=== PATIENT | male | born 1945 | race Caucasian/White ===

== ENCOUNTER 2019-05-28 12:00 | Observation (INO) ==
--- NOTE | 2019-05-28 12:16 | Emergency Department Note ---
Disposition Clinical Impression: Ureterolithiasis, Acute kidney injury Disposition: Admitted As Inpatient Condition: Good Forms: Work/School Release, ED Satisfaction Letter Time of Disposition: 13:27 Abdominal Pain HPI - General Chief Complaint: ED Abdominal Pain Stated Complaint: kidney stones Time Seen by Provider: 05/28/19 12:07 Source: patient Mode of arrival: EMS Limitations: no limitations Nursing Notes Reviewed: Yes Vital Signs Reviewed: Yes - History of Present Illness HPI Narrative: This is a 73-year-old male with a history of hypertension, prior TIA, prior renal stones requiring surgical removal who presents to the ER via EMS from the [facility] due to kidney stone. Patient reports he developed flank pain on Monday. [place] similar to his prior kidney stones. He was vomiting throughout the day unable to keep down his blood pressure medications. He had a CT scan showing a right proximal ureteral stone. Patient was given some pain meds reports resolution of his pain. No recent illnesses. No fevers. No dysuria or hematuria. No other complaints. Pt Subjective Complaint: flank pain Onset (ago): day(s) Consistency: now resolved Location: R flank Improves with: nothing Worsens with: nothing Associated symptoms: Reports: nausea, vomiting. Denies: diarrhea, fever, dysuria, hematuria Treatments prior to arrival: none - Related Data Home Medications Medication Instructions Recorded Confirmed Lisinopril 1 tab PO DAILY 08/12/16 11/29/18 Aspirin [Lo-Dose Aspirin EC] 81 mg PO DAILY 07/12/18 11/29/18 Previous Rx's Medication Instructions Recorded Sildenafil Citrate [Viagra] 100 mg PO PRN PRN #2 tablet 11/29/18 Allergies Allergy/AdvReac Type Severity Reaction Status Date / Time codeine Allergy Gastrointestinal Verified 11/29/18 13:57 Upset All systems ED: reviewed and negative except as stated. Constitutional: Denies: fever, chills Gastrointestinal: Reports: abdominal pain, nausea, vomiting. Denies: diarrhea Genitourinary: Denies: dysuria, hematuria Abdominal Pain PMH - Past Medical History Male Surgical History: Reports: cancer surgery, Tonsillectomy, ureteral stent - Social History Smoking status: Never smoker Alcohol use: Reports: none Drug use: Reports: none Physical Exam - General Limitations: no limitations General appearance: alert, in no apparent distress - Head Head exam: atraumatic, normocephalic, normal inspection - Eye Eye exam: Present: normal appearance - ENT ENT exam: normal exam - Neck Neck exam: Present: normal inspection - Chest Chest inspection: Present: normal inspection, symmetric chest wall rise - Respiratory Respiratory exam: Present: normal lung sounds bilaterally - Cardiovascular Cardiovascular exam: Present: regular rate, normal rhythm, irregular rhythm - Abdominal Exam Abdominal exam: Present: soft, Non-Tender. Absent: tenderness, distention, guarding, rigidity - Extremities Exam Extremities exam: Present: normal inspection, full ROM - Expanded Upper Extremity Exam Shoulder exam: Present: normal inspection, full ROM Arm exam: Present: normal inspection, full ROM Elbow exam: Present: normal inspection, full ROM Forearm/Wrist exam: Present: normal inspection, full ROM Hand exam: Present: normal inspection, full ROM - Expanded Lower Extremity Exam Hip/Pelvis exam: Present: normal inspection, full ROM Upper leg exam: Present: normal inspection, full ROM Knee exam: Present: normal inspection, full ROM Lower leg exam: Present: normal inspection, full ROM Ankle exam: Present: normal inspection, full ROM Foot/toe exam: Present: normal inspection, full ROM - Skin Skin exam: Present: warm, dry Course Course Narrative: Seen and examined. I reviewed the patient's CT read from the [facility] today with the impression: There is a large calculus in the proximal right ureter at the right ureteropelvic junction resulting in moderate hydronephrosis. 2. Bilateral nonobstructing renal calculi. 3. Bilateral inguinal hernias. The right inguinal hernia contains bladder. This is unchanged compared to 2012. In review of the CT scan the patient has an 11 mm x 10 mm x 11 mm calculus in the right proximal right ureter at the UPJ. Labs reviewed from the [facility]. WBC 12.8. Creatinine 1.6, normal potassium, urinalysis without infection. Patient is currently asymptomatic. Plan did discuss with urology for anticipated admission. - Reevaluation(s) Reevaluation #1: Discussed recommendations from urology with the patient, agreeable with admission. - Consultations Consultation #1: I spoke with the OR nurse as Dr. Pitts was scrubbed in. Discussed the patient's history, imaging at the [facility], labs. He recommends admission to the hospital service, keep the patient nothing by mouth and they will see in consultation. Vital Signs Temperature 98.6 F 05/28/19 12:22 Pulse Rate 65 05/28/19 12:22 Respiratory Rate 18 05/28/19 12:22 Blood Pressure 154/88 05/28/19 12:22 O2 Sat by Pulse Oximetry 97 05/28/19 12:22 Temperature 98.6 F 05/28/19 12:22 Pulse Rate 65 05/28/19 12:22 Respiratory Rate 18 05/28/19 12:22 Blood Pressure 154/88 05/28/19 12:22 O2 Sat by Pulse Oximetry 97 05/28/19 12:22 Oxygen Delivery Oxygen Delivery Room Air Abdominal Pain - MDM Narrative Medical decision making narrative: 73-year-old male presenting with right flank pain found to have a right proximal ureteral stone. His pain is well controlled here. He does have a creatinine of 1.6 which is up from his baseline. His urinalysis at the [facility] showed no signs of infection. Urology was consulted. The patient is admitted to the hospitalist service. - Lab Data Lab results reviewed: Yes I reviewed the patient's lab results. Result diagrams: 05/28/19 12:20 05/28/19 12:20 Lab Results 05/28/19 05/28/19 05/28/19 Range/Units 12:06 12:20 12:20 WBC 14.0 H (4.3-11.1) K/mcL RBC 5.42 (4.19-5.50) M/mcL Hgb 17.3 H (12.9-16.9) g/dL Hct 50.7 H (37.5-50.1) % MCV 93.5 (83.0-100.0) fL MCH 31.9 (28.0-33.3) pg MCHC 34.1 (31.6-35.5) g/dL RDW 13.6 (11.5-14.5) % Plt Count 186 (140-400) K/mcL MPV 9.5 (9.4-12.4) fL Immature Gran % 0.6 (0-4) % Seg Neutrophils % 82.9 % Lymphocytes % 7.4 % Monocytes % 8.4 % Eosinophils % 0.1 % Basophils % 0.6 % Neutrophils # 11.6 H (1.6-8.9) K/mcL Lymphocytes # 1.0 (0.6-4.6) K/mcL Monocytes # 1.2 (0.0-1.3) K/mcL Eosinophils # 0.0 (0.0-0.6) K/mcL Basophils # 0.1 (0.0-0.2) K/mcL PT 11.7 (9.4-12.1) Seconds INR 1.0 Sodium (136-145) mEq/L Potassium (3.5-5.1) mEq/L Chloride (98-107) mEq/L Carbon Dioxide (23-29) mEq/L BUN (8-23) mg/dL Creatinine (0.70-1.30) mg/dL Est GFR ( Amer) (> 60) Est GFR (Non-Af Amer) (> 60) BUN/Creatinine Ratio (6-26) Glucose (70-105) mg/dL Calculated Osmolality (280-300) Calcium (8.6-10.3) mg/dL Total Bilirubin (0.3-1.0) mg/dL Direct Bilirubin (0.0-0.2) mg/dL Indirect Bilirubin (0.0-1.2) mg/dL AST (13-39) Units/L ALT (7-52) Units/L Alkaline Phosphatase (34-104) Units/L Serum Total Protein (6.4-8.9) g/dL Albumin (3.5-5.7) g/dL Globulin (2.4-3.5) g/dL Albumin/Globulin Ratio (1.1-2.2) Lipase (11-82) Units/L Urine Color Yellow (Yellow) Urine Clarity Clear (Clear) Urine pH 6.0 (5.0-8.0) pH Units Ur Specific [place] 1.014 (1.010-1.025) Urine Protein Negative (Neg-Trace) mg/dL Urine Glucose (UA) Normal (Normal) mg/dL Urine Ketones Negative (Negative) mg/dL Urine Blood Negative (Negative) Urine Nitrite Negative (Negative) Urine Bilirubin Negative (Negative) Urine Urobilinogen Normal (Normal) mg/dL Ur Leukocyte Esterase Negative (Negative) Ur Culture Indicated? NO (NO) 05/28/19 Range/Units 12:20 WBC (4.3-11.1) K/mcL RBC (4.19-5.50) M/mcL Hgb (12.9-16.9) g/dL Hct (37.5-50.1) % MCV (83.0-100.0) fL MCH (28.0-33.3) pg MCHC (31.6-35.5) g/dL RDW (11.5-14.5) % Plt Count (140-400) K/mcL MPV (9.4-12.4) fL Immature Gran % (0-4) % Seg Neutrophils % % Lymphocytes % % Monocytes % % Eosinophils % % Basophils % % Neutrophils # (1.6-8.9) K/mcL Lymphocytes # (0.6-4.6) K/mcL Monocytes # (0.0-1.3) K/mcL Eosinophils # (0.0-0.6) K/mcL Basophils # (0.0-0.2) K/mcL PT (9.4-12.1) Seconds INR Sodium 133 L (136-145) mEq/L Potassium 4.1 (3.5-5.1) mEq/L Chloride 99 (98-107) mEq/L Carbon Dioxide 25 (23-29) mEq/L BUN 24 H (8-23) mg/dL Creatinine 1.60 H (0.70-1.30) mg/dL Est GFR ( Amer) 51 L (> 60) Est GFR (Non-Af Amer) 42 L (> 60) BUN/Creatinine Ratio 15 (6-26) Glucose 112 H (70-105) mg/dL Calculated Osmolality 281 (280-300) Calcium 9.8 (8.6-10.3) mg/dL Total Bilirubin 1.0 (0.3-1.0) mg/dL Direct Bilirubin 0.3 H (0.0-0.2) mg/dL Indirect Bilirubin 0.7 (0.0-1.2) mg/dL AST 23 (13-39) Units/L ALT 20 (7-52) Units/L Alkaline Phosphatase 48 (34-104) Units/L Serum Total Protein 8.2 (6.4-8.9) g/dL Albumin 4.6 (3.5-5.7) g/dL Globulin 3.6 H (2.4-3.5) g/dL Albumin/Globulin Ratio 1.3 (1.1-2.2) Lipase 7 L (11-82) Units/L Urine Color (Yellow) Urine Clarity (Clear) Urine pH (5.0-8.0) pH Units Ur Specific [place] (1.010-1.025) Urine Protein (Neg-Trace) mg/dL Urine Glucose (UA) (Normal) mg/dL Urine Ketones (Negative) mg/dL Urine Blood (Negative) Urine Nitrite (Negative) Urine Bilirubin (Negative) Urine Urobilinogen (Normal) mg/dL Ur Leukocyte Esterase (Negative) Ur Culture Indicated? (NO) - Radiology Data Radiology results reviewed: Yes I reviewed the patient's radiology results. S.[email or web address].[email or web address] - Fernando Situation: Demographics, MOA Background: Presenting Complaint, Relevant PMH, Meds, & Allergies Assessment: Vital Signs, Course and respsone to treatment, Exam Concerns, Patient/Family Expectation, Pertinant Lab Results S.B.A.Dewey Report Given to: Dr. Baljit King Repor Time: 13:27
[2019-05-28 12:33] LABS: Basophils # 0.1 K/mcL (0.0-0.2); Basophils % 0.6 %; Eosinophils % 0.1 %; Hematocrit 50.7 % (37.5-50.1); Hemoglobin 17.3 g/dL (12.9-16.9); Immature Granulocytes % 0.6 % (0-4); Lymphocytes % 7.4 %; Mean Corpuscular HGB Conc 34.1 g/dL (31.6-35.5); Mean Corpuscular Hemoglobin 31.9 pg (28.0-33.3); Mean Corpuscular Volume 93.5 fL (83.0-100.0); Mean Platelet Volume 9.5 fL (9.4-12.4); Monocytes # 1.2 K/mcL (0.0-1.3); Monocytes % 8.4 %; Neutrophils # 11.6 K/mcL (1.6-8.9); Platelet Count 186 K/mcL (140-400); Red Blood Count 5.42 M/mcL (4.19-5.50); Red Cell Distribution Width 13.6 % (11.5-14.5); Segmented Neutrophils % 82.9 %
[2019-05-28 12:34] LABS: Bilirubin,Urine Negative (Negative); Blood,Urine Negative (Negative); Clarity,Urine Clear (Clear); Color,Urine Yellow (Yellow); Glucose,Urine (UA) Normal (Normal); Ketones,Urine Negative (Negative); Leukocyte Esterase,Urine Negative (Negative); Nitrite,Urine Negative (Negative); Protein,Urine Negative (Neg-Trace); Specific Gravity,Urine 1.014 (1.010-1.025); Urobilinogen,Urine Normal (Normal)
[2019-05-28 12:40] LABS: Prothrombin Time 11.7 Seconds (9.4-12.1)
[2019-05-28 12:54] LABS: Albumin 4.6 g/dL (3.5-5.7); Albumin/Globulin Ratio 1.3 (1.1-2.2); Bilirubin,Direct 0.3 mg/dL (0.0-0.2); Bilirubin,Indirect 0.7 mg/dL (0.0-1.2); Calcium 9.8 mg/dL (8.6-10.3); Globulin 3.6 g/dL (2.4-3.5); Potassium 4.1 mEq/L (3.5-5.1); Total Protein 8.2 g/dL (6.4-8.9)
[2019-05-28] MEDS ORDERED: Naloxone 0.4 MG/ML INJ IVP PRN ×2 (13:08→17:28)
[2019-05-28] MEDS ORDERED: Acetaminophen 325 MG TABLET PO PRN ×3 (13:08→21:45)
[2019-05-28] MEDS ORDERED: Ondansetron 4 MG/2 ML VIAL IVP PRN ×2 (13:08→17:28)
[2019-05-28] MEDS ORDERED: *HR* OxyCODONE Immed Rel 5 MG TABLET PO PRN ×2 (13:08→17:28)
[2019-05-28] MEDS ORDERED: 0.9 % Sodium Chloride 1,000 ML IVC ONE (13:16)
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
--- NOTE | 2019-05-28 13:42 | Urology - Consult Note ---
<Lizeth Camacho N - Last Filed: 05/28/19 13:49> Date of Encounter: 05/28/19 Time of Encounter: 12:30 - Assessment and Plan (1) Ureteral stone with hydronephrosis Current Visit: Yes Status: Acute Assessment and plan: Patient is a 73-year-old male who presents with a right 11 mm UPJ stone. I reviewed CT report with patient and his at bedside. We discussed surgical risks and benefits, and patient verbalized understanding. Patient signed consent, and he is prepared undergo a cystoscopy and right ureteral stent placement with Dr. Pitts. Patient will remain nothing by mouth. Urology CN:HPI Consult date: 05/28/19 Reason for consult Urology: Hydronephrosis (right proximal ureteral stone) Requesting physician: Domenic Hoffmann History of present illness: Patient is a 73-year-old male who presents with an 11 mm right proximal ureteral stone and hydronephrosis. Patient reports a 2 day history of severe right flank pain, nausea and vomiting. He initially presented to [facility] where she underwent a CT scan of the abdomen and pelvis revealing a large, 10 x 11 mm right proximal ureteral stone and moderate hydronephrosis. Patient was subsequently transferred to [facility] for urologic intervention. Currently, patient reports pain is well-controlled, and he denies any fever, chills, dysuria or gross hematuria. Patient reports a long-standing history of nephrolithiasis, and he has undergone multiple ureteroscopy and ESWL procedures in the past. Patient is a previous patient of Dr. Best, and he primarily follows at the [facility]. He denies any known family history of renal stones. Past Med Surg Social Fam HX - Past Medical History Medical history: cancer, hypertension, kidney stones, TIA Additional medical history: prostate cancer Psychiatric history: no psych history - Past Surgical History Surgical History: ureteral stent - Social History Smoking Status: Never smoker Smokeless Tobacco Status: No Alcohol use: none Drug use: none - Additional Family History Additional family history: No known documentation family history of renal stones Medications and Allergies Lisinopril 1 tab PO DAILY 08/12/16 [History] Aspirin [Lo-Dose Aspirin EC] 81 mg PO DAILY 07/12/18 [History] Sildenafil Citrate [Viagra] 100 mg PO PRN PRN #2 tablet 11/29/18 [Rx] Allergy/AdvReac Type Severity Reaction Status Date / Time codeine Allergy Gastrointestinal Verified 11/29/18 13:57 Upset Review of Systems - Constitutional no chills, no fatigue, no fever(s) - EENT Nose, mouth and throat: no dizziness, no headache(s) - Cardiovascular no chest pain, no diaphoresis, no dyspnea - Respiratory no cough, no dyspnea - Gastrointestinal abdominal pain, nausea, vomiting - Genitourinary flank pain, no change in urinary stream, no difficulty urinating, no dysuria, no hematuria, no urinary frequency, no urinary hesitancy, no urinary incontinence, no urinary urgency - Musculoskeletal back pain, no muscle weakness - Integumentary no erythema, no rash - Neurological no confusion, no syncope - Psychiatric no anxiety, no confusion - Hematologic/Lymphatic no easy bleeding, no easy bruising - Allergic/Immunologic no throat swelling, no wheezing Exam Initial Vital Signs Temp Pulse Resp BP Pulse Ox 98.6 F 65 18 154/88 97 05/28/19 12:22 05/28/19 12:22 05/28/19 12:22 05/28/19 12:05/28/19 12:22 - General physical appearance Present: well developed, no distress, no pain - Eyes Present: PERRL, normal ocular movement - ENT Present: normal nares, no hearing loss, no congestion - Neck Present: no masses, trachea midline, no lymphadenopathy - Respiratory Present: normal respiratory effort - Cardiovascular Cardiovascular exam IM: RRR - Abdomen Abdomen: Present: soft, non tender. Absent: distended - Genitourinary other (No CVAT) - Integumentary Present: no rash, no abnormal pigmentation - Neurologic Present: normal coordination - Musculoskeletal Present: other (Normal posture) Urology Results - Labs 05/28/19 12:20 05/28/19 12:20 Abnormal lab results WBC 14.0 K/mcL (4.3-11.1) H 05/28/19 12:20 Hgb 17.3 g/dL (12.9-16.9) H 05/28/19 12:20 Hct 50.7 % (37.5-50.1) H 05/28/19 12:20 Neutrophils # 11.6 K/mcL (1.6-8.9) H 05/28/19 12:20 Sodium 133 mEq/L (136-145) L 05/28/19 12:20 BUN 24 mg/dL (8-23) H 05/28/19 12:20 Creatinine 1.60 mg/dL (0.70-1.30) H 05/28/19 12:20 Est GFR ( Amer) 51 (> 60) L 05/28/19 12:20 Est GFR (Non-Af Amer) 42 (> 60) L 05/28/19 12:20 Glucose 112 mg/dL (70-105) H 05/28/19 12:20 Direct Bilirubin 0.3 mg/dL (0.0-0.2) H 05/28/19 12:20 Globulin 3.6 g/dL (2.4-3.5) H 05/28/19 12:20 Lipase 7 Units/L (11-82) L 05/28/19 12:20 Diabetes panel 05/28/19 Range/Units 12:20 Sodium 133 L (136-145) mEq/L Potassium 4.1 (3.5-5.1) mEq/L Chloride 99 (98-107) mEq/L Carbon Dioxide 25 (23-29) mEq/L BUN 24 H (8-23) mg/dL Creatinine 1.60 H (0.70-1.30) mg/dL Glucose 112 H (70-105) mg/dL Calcium 9.8 (8.6-10.3) mg/dL AST 23 (13-39) Units/L ALT 20 (7-52) Units/L Alkaline Phosphatase 48 (34-104) Units/L Albumin 4.6 (3.5-5.7) g/dL Calcium panel 05/28/19 Range/Units 12:20 Calcium 9.8 (8.6-10.3) mg/dL Albumin 4.6 (3.5-5.7) g/dL Pituitary panel 05/28/19 Range/Units 12:20 Sodium 133 L (136-145) mEq/L Potassium 4.1 (3.5-5.1) mEq/L Chloride 99 (98-107) mEq/L Carbon Dioxide 25 (23-29) mEq/L BUN 24 H (8-23) mg/dL Creatinine 1.60 H (0.70-1.30) mg/dL Glucose 112 H (70-105) mg/dL Calcium 9.8 (8.6-10.3) mg/dL Adrenal panel 05/28/19 Range/Units 12:20 Sodium 133 L (136-145) mEq/L Potassium 4.1 (3.5-5.1) mEq/L Chloride 99 (98-107) mEq/L Carbon Dioxide 25 (23-29) mEq/L BUN 24 H (8-23) mg/dL Creatinine 1.60 H (0.70-1.30) mg/dL Glucose 112 H (70-105) mg/dL Calcium 9.8 (8.6-10.3) mg/dL Total Bilirubin 1.0 (0.3-1.0) mg/dL AST 23 (13-39) Units/L ALT 20 (7-52) Units/L Alkaline Phosphatase 48 (34-104) Units/L Albumin 4.6 (3.5-5.7) g/dL All other labs normal. - Imaging CT scan - abdomen: report reviewed CT scan - pelvis: report reviewed Consult Discharge Plan - Plan [facility] Provider[facility] - <Ac Pitts - Last Filed: 05/28/19 21:05> Date of Encounter: 05/28/19 - Assessment and Plan (1) Acute kidney injury Current Visit: Yes Status: Acute Assessment and plan: will watch for improvement after stent placed. (2) Ureteral stone with hydronephrosis Current Visit: Yes Status: Acute Assessment and plan: pt seen and examined in conjunction with the PA. plan to proceed with a ureteral stent and will need staged management of the stone. Exam Initial Vital Signs Temp Pulse Resp BP Pulse Ox 98.6 F 65 18 154/88 97 05/28/19 12:22 05/28/19 12:22 05/28/19 12:22 05/28/19 12:22 05/28/19 12:22 Urology Results - Labs 05/28/19 12:20 05/28/19 12:20 Abnormal lab results WBC 14.0 K/mcL (4.3-11.1) H 05/28/19 12:20 Hgb 17.3 g/dL (12.9-16.9) H 05/28/19 12:20 Hct 50.7 % (37.5-50.1) H 05/28/19 12:20 Neutrophils # 11.6 K/mcL (1.6-8.9) H 05/28/19 12:20 Sodium 133 mEq/L (136-145) L 05/28/19 12:20 BUN 24 mg/dL (8-23) H 05/28/19 12:20 Creatinine 1.60 mg/dL (0.70-1.30) H 05/28/19 12:20 Est GFR ( Amer) 51 (> 60) L 05/28/19 12:20 Est GFR (Non-Af Amer) 42 (> 60) L 05/28/19 12:20 Glucose 112 mg/dL (70-105) H 05/28/19 12:20 Direct Bilirubin 0.3 mg/dL (0.0-0.2) H 05/28/19 12:20 Globulin 3.6 g/dL (2.4-3.5) H 05/28/19 12:20 Lipase 7 Units/L (11-82) L 05/28/19 12:20 25-OH Vitamin D Total 21 ng/mL (30-80) L 05/28/19 12:20 Diabetes panel 05/28/19 Range/Units 12:20 Sodium 133 L (136-145) mEq/L Potassium 4.1 (3.5-5.1) mEq/L Chloride 99 (98-107) mEq/L Carbon Dioxide 25 (23-29) mEq/L BUN 24 H (8-23) mg/dL Creatinine 1.60 H (0.70-1.30) mg/dL Glucose 112 H (70-105) mg/dL Calcium 9.8 (8.6-10.3) mg/dL AST 23 (13-39) Units/L ALT 20 (7-52) Units/L Alkaline Phosphatase 48 (34-104) Units/L Albumin 4.6 (3.5-5.7) g/dL Calcium panel 05/28/19 05/28/19 Range/Units 12:20 12:20 Calcium 9.8 (8.6-10.3) mg/dL Phosphorus 3.1 (2.7-4.5) mg/dL Albumin 4.6 (3.5-5.7) g/dL 25-OH Vitamin D Total 21 L (30-80) ng/mL Pituitary panel 05/28/19 Range/Units 12:20 Sodium 133 L (136-145) mEq/L Potassium 4.1 (3.5-5.1) mEq/L Chloride 99 (98-107) mEq/L Carbon Dioxide 25 (23-29) mEq/L BUN 24 H (8-23) mg/dL Creatinine 1.60 H (0.70-1.30) mg/dL Glucose 112 H (70-105) mg/dL Calcium 9.8 (8.6-10.3) mg/dL Adrenal panel 05/28/19 Range/Units 12:20 Sodium 133 L (136-145) mEq/L Potassium 4.1 (3.5-5.1) mEq/L Chloride 99 (98-107) mEq/L Carbon Dioxide 25 (23-29) mEq/L BUN 24 H (8-23) mg/dL Creatinine 1.60 H (0.70-1.30) mg/dL Glucose 112 H (70-105) mg/dL Calcium 9.8 (8.6-10.3) mg/dL Total Bilirubin 1.0 (0.3-1.0) mg/dL AST 23 (13-39) Units/L ALT 20 (7-52) Units/L Alkaline Phosphatase 48 (34-104) Units/L Albumin 4.6 (3.5-5.7) g/dL All other labs normal.
[2019-05-28 13:44] LABS: Phosphorous 3.1 mg/dL (2.7-4.5)
--- NOTE | 2019-05-28 15:33 | Anesthesia Evaluation PreOp ---
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 Other Medical History: Renal (RIGHT URETRIC STONE, ?CKD VS AMY) Anesthesia History: No Prior Anesthetic Complications, Past Anesthesia Alcohol Use: none Drug use: none Medications and Allergies Lisinopril 1 tab PO DAILY 08/12/16 [History] Aspirin [Lo-Dose Aspirin EC] 81 mg PO DAILY 07/12/18 [History] Sildenafil Citrate [Viagra] 100 mg PO PRN PRN #2 tablet 11/29/18 [Rx] Allergy/AdvReac Type Severity Reaction Status Date / Time codeine Allergy Gastrointestinal Verified 11/29/18 13:57 Upset - Meds/Allergy Pre-op Review Medications Reviewed: Yes Allergies Reviewed: Yes Anesthesia Results - Labs 05/28/19 12:20 05/28/19 12:20 Anesthesia Exam Vital Signs/O2 Sat/Glucose, Most Recent Temp Pulse Resp BP Pulse Ox 98.6 F 65 18 154/88 97 05/28/19 12:22 05/28/19 12:22 05/28/19 12:22 05/28/19 12:22 05/28/19 12:22 Weight: 93 KG - BMI 31 NPO (# of Hours): 8 - HEENT Mallampati: II Teeth: Normal - Cardiac Rhythm: Regular - Pulmonary Breath Sounds: bilateral Clear Anesthesia Assess/Plan ASA Score: 3 Anesthetic Plan: General Monitoring Plan: Standard Monitors Recovery Plan: PACU
[2019-05-28] MEDS ORDERED: Isovue-300 50 ML VIAL ONE (15:45)
[2019-05-28] MEDS ORDERED: Morphine Sulfate Oral CONC 10 MG/0.5 ML ORAL.SYG SL PRN (16:03)
[2019-05-28] MEDS ORDERED: *HR* FentaNYL (PF) 100 MCG/2 ML VIAL IVP PRN (16:03)
[2019-05-28] MEDS ORDERED: *HR* Promethazine 25 MG/ML VIAL IVP PRN (16:03)
[2019-05-28] MEDS ORDERED: Ondansetron 4 MG/2 ML VIAL IVP ONE (16:03)
[2019-05-28] MEDS ORDERED: Acetaminophen IV 1,000 MG/100 ML INFUS..BTL IVPB ONE (16:03)
[2019-05-28] MEDS ORDERED: *HR* Labetalol 20 MG/4 ML SYRINGE IVP PRN (16:03)
[2019-05-28] MEDS ORDERED: ceFAZolin 2,000 MG in Water for inj. (sterile) 20 ML IVP ONE (16:10)
[2019-05-28] MEDS ORDERED: EPHEDrine 50 MG/ML VIAL ONE (16:28)
[2019-05-28] MEDS ORDERED: Ondansetron 4 MG/2 ML VIAL ONE (16:28)
[2019-05-28] MEDS ORDERED: Lidocaine -MPF 2% 2 ML VIAL ONE (16:28)
[2019-05-28] MEDS ORDERED: *HR* Propofol 200 MG/20 ML VIAL IVP ONE (16:28)
[2019-05-28] MEDS ORDERED: Dexamethasone 4 MG/ML VIAL ONE (16:28)
[2019-05-28] MEDS ORDERED: *HR* FentaNYL (PF) 100 MCG/2 ML VIAL ONE (16:29)
--- NOTE | 2019-05-28 16:33 | Operative Note ---
Date of procedure: 05/28/19 Pre-op diagnosis: 1.1 cm right UPJ stone Post-op diagnosis: same Procedure: cystoscopy. right retrograde pyelogram. right JJ stent placement. Anesthesia: GETA Surgeon: Ac Pitts Was there an application assistant present: No Estimated blood loss (cc): 0 Specimen: None Condition: stable Disposition: PACU Procedure in Detail: PROCEDURE IN DETAIL: Patient was taken back to the operating room, positioned supine on the operating table. Anesthesia was applied without complication. They were moved into dorsal lithotomy. Careful attention was maintained to cushion all pressure points for patient's safety. They were prepped and draped in sterile fashion. Time-out was performed with the proper patient and procedure. A 21-Azerbaijani rigid cystoscope was inserted into the bladder without difficulty. Systematic examination of bladder revealed no abnormalities. The right ureteral orifice was cannulated using a 5-Azerbaijani ureteral Catheter and a retrograde pyelogram was performed using Isovue. A filling defect was identified which corresponded to the stone. At that point, a zip wire was placed through the 5-Azerbaijani and confirmed in the renal pelvis with fluoroscopy. A 4.8 x 26 ureteral stent was then placed over the zip wire under fluoroscopy without complication. Bladder was drained. Stent appeared to be in good position. No dangle string was left attached to the stent.
--- NOTE | 2019-05-28 16:56 | Anesthesia Evaluation Post Op ---
Date of Encounter: 05/28/19 Time of Encounter: 16:56 - Discharge PostOp Status: Transfer Patient to floor (Patient's vital signs have been reviewed. Patient is stable postoperatively and has adequately recovered from anesthesia. Patient is determined to have stable airway patency and respiratory function including respiratory rate and oxygen saturation. Patient has a stable heart rate, blood pressure and adequate hydration. Patients mental status is acceptable. Patients temperature is appropriate. Pain and nausea are adequately controlled)
[2019-05-28] MEDS ORDERED: *HR* HYDROcodone/Acet 5/325 mg TABLET PO PRN (17:28)
[2019-05-28] MEDS ORDERED: *HR* Belladonna Alkaloids/Opium 30 MG RECTAL SUPPOSITORY RC PRN (17:28)
[2019-05-29 06:12] LABS: Hematocrit 45.2 % (37.5-50.1); Mean Corpuscular HGB Conc 34.5 g/dL (31.6-35.5); Mean Corpuscular Hemoglobin 31.7 pg (28.0-33.3); Mean Corpuscular Volume 91.9 fL (83.0-100.0); Mean Platelet Volume 9.6 fL (9.4-12.4); Platelet Count 191 K/mcL (140-400); Red Blood Count 4.92 M/mcL (4.19-5.50); Red Cell Distribution Width 13.3 % (11.5-14.5)
[2019-05-29 06:13] LABS: Hemoglobin 15.6 g/dL (12.9-16.9)
[2019-05-29 06:38] LABS: BUN/Creatinine Ratio 20 (6-26); Blood Urea Nitrogen 24 mg/dL (8-23); Calcium 9.4 mg/dL (8.6-10.3); Carbon Dioxide 26 mEq/L (23-29); Chloride 102 mEq/L (98-107); Glucose 122 mg/dL (70-105); Osmolality,Calculated 289 (280-300); Potassium 4.2 mEq/L (3.5-5.1); Sodium 137 mEq/L (136-145); eGFR For African Americans > 60 (> 60); eGFR For Non-African Americans 59 (> 60)
--- NOTE | 2019-05-29 08:30 | Urology Progress Note ---
<Lizeth Camacho N - Last Filed: 05/29/19 08:27> Date of Encounter: 05/29/19 Time of Encounter: 08:00 - Assessment and Plan (1) Ureteral stone with hydronephrosis Status: Acute Assessment and plan: Patient is a 73-year-old male who presents one day status post cystoscopy, right retrograde pyelogram and right ureteral stent placement. Patient is recovering very well postoperatively. Vital signs are stable and afebrile, and serum creatinine has improved from 1.6-1.2. We discussed postoperative expectations with indwelling ureteral stent. Patient is aware he will require a staged stone extraction procedure. [facility] will contact patient for outpatient stone extraction. Patient may be eligible for discharge from urologic standpoint. Progress Note Subjective: no new complaints, feels better Narrative: POD #1. Patient seen and examined sitting upright in bed in no distress. Patient is tolerating normal diet without nausea or vomiting. Patient is voiding well without difficulty. He denies any fever, chills or flank pain. Objective Initial Vital Signs Temp Pulse Resp BP Pulse Ox 98.6 F 65 18 154/88 97 05/28/19 12:22 05/28/19 12:22 05/28/19 12:22 05/28/19 12:22 05/28/19 12:22 - General physical appearance Present: no distress, no pain - Respiratory Present: normal expansion, normal respiratory effort - Abdomen Present: soft, non tender. Absent: distended - Integumentary Present: no rash, no abnormal pigmentation - Musculoskeletal Present: normal posture - Psychiatric Present: oriented to time, oriented to person, oriented to place, speech is normal, memory intact - Labs 05/29/19 05:38 05/29/19 05:38 Diabetes panel 05/28/19 05/29/19 Range/Units 12:20 05:38 Sodium 133 L 137 (136-145) mEq/L Potassium 4.1 4.2 (3.5-5.1) mEq/L Chloride 99 102 (98-107) mEq/L Carbon Dioxide 25 26 (23-29) mEq/L BUN 24 H 24 H (8-23) mg/dL Creatinine 1.60 H 1.21 (0.70-1.30) mg/dL Glucose 112 H 122 H (70-105) mg/dL Calcium 9.8 9.4 (8.6-10.3) mg/dL AST 23 (13-39) Units/L ALT 20 (7-52) Units/L Alkaline Phosphatase 48 (34-104) Units/L Albumin 4.6 (3.5-5.7) g/dL Calcium panel 05/28/19 05/28/19 05/29/19 Range/Units 12:20 12:20 05:38 Calcium 9.8 9.4 (8.6-10.3) mg/dL Phosphorus 3.1 (2.7-4.5) mg/dL Albumin 4.6 (3.5-5.7) g/dL 25-OH Vitamin D Total 21 L (30-80) ng/mL Pituitary panel 05/28/19 05/29/19 Range/Units 12:20 05:38 Sodium 133 L 137 (136-145) mEq/L Potassium 4.1 4.2 (3.5-5.1) mEq/L Chloride 99 102 (98-107) mEq/L Carbon Dioxide 25 26 (23-29) mEq/L BUN 24 H 24 H (8-23) mg/dL Creatinine 1.60 H 1.21 (0.70-1.30) mg/dL Glucose 112 H 122 H (70-105) mg/dL Calcium 9.8 9.4 (8.6-10.3) mg/dL Adrenal panel 05/28/19 05/29/19 Range/Units 12:20 05:38 Sodium 133 L 137 (136-145) mEq/L Potassium 4.1 4.2 (3.5-5.1) mEq/L Chloride 99 102 (98-107) mEq/L Carbon Dioxide 25 26 (23-29) mEq/L BUN 24 H 24 H (8-23) mg/dL Creatinine 1.60 H 1.21 (0.70-1.30) mg/dL Glucose 112 H 122 H (70-105) mg/dL Calcium 9.8 9.4 (8.6-10.3) mg/dL Total Bilirubin 1.0 (0.3-1.0) mg/dL AST 23 (13-39) Units/L ALT 20 (7-52) Units/L Alkaline Phosphatase 48 (34-104) Units/L Albumin 4.6 (3.5-5.7) g/dL Consult Discharge Plan - Plan Instructions: Acute Kidney Injury (DC), Kidney Stones (DC) Additional Instructions: Your vitamin D level was found to be very low, at 21 (normal is above 30). You been prescribed vitamin D supplement to take weekly, first dose was given here in the hospital. He will need follow-up with her primary care provider for a recheck in approximately 2 months [facility]: [facility] Provider[facility] - 08/06/19 10:45 am Ac Pitts MD [Partnered Physician] - (The office will call patient with date and time of appointment. Thank you) Prescriptions: Belladonna Alkaloids/Opium [B + O] 30 mg RC Q6HR PRN 5 Days #20 supp.rect PRN Reason: Spasms Ergocalciferol (VITAMIN D2) [Drisdol (50,000 Unit)] 50,000 unit PO QWEEK 56 Days #7 capsule HYDROcodone/Acet 5/325 mg [[place] 5-325 mg] 1 tab PO Q6HR PRN 5 Days #10 tablet PRN Reason: Severe Pain <Ac Pitts - Last Filed: 05/30/19 07:11> Date of Encounter: 05/30/19 - Assessment and Plan (1) Acute kidney injury Status: Acute (2) Ureteral stone with hydronephrosis Status: Acute Assessment and plan: pt not seen by MD. agree with PA a/p Objective Initial Vital Signs Temp Pulse Resp BP Pulse Ox 98.6 F 65 18 154/88 97 05/28/19 12:22 05/28/19 12:22 05/28/19 12:22 05/28/19 12:22 05/28/19 12:22 - Labs 05/29/19 05:38 05/29/19 05:38
[2019-05-29] MEDS ORDERED: Aspirin Enteric Coated 81 MG Tablet PO SCH ×2 (09:00)
[2019-05-29 10:35] VITALS: BP 145/72
--- NOTE | 2019-05-29 13:13 | Discharge Summary ---
<Yanira Winkler - Last Filed: 05/29/19 15:39> Date of Encounter: 05/29/19 Hospital course: Mr. Munson is a 73 year old male - Time Spent with Patient Total time spent providing and/or coordinating discharge services: - Discharge Medications Prescriptions: New Belladonna Alkaloids/Opium [B + O] 30 mg RC Q6HR PRN 5 Days #20 supp.rect PRN Reason: Spasms Ergocalciferol (VITAMIN D2) [Drisdol (50,000 Unit)] 50,000 unit PO QWEEK 56 Days #7 capsule HYDROcodone/Acet 5/325 mg [[place] 5-325 mg] 1 tab PO Q6HR PRN 5 Days #10 tablet PRN Reason: Severe Pain Continued Aspirin [Lo-Dose Aspirin EC] 81 mg PO DAILY hydroCHLOROthiazide [Hydrochlorothiazide] 12.5 mg PO DAILY Discontinued Cholecalciferol (Vitamin D3) [Vitamin D3] 400 units PO DAILY Home Medications: Aspirin [Lo-Dose Aspirin EC] 81 mg PO DAILY 07/12/18 [History] hydroCHLOROthiazide [Hydrochlorothiazide] 12.5 mg PO DAILY 05/28/19 [History] Belladonna Alkaloids/Opium [B + O] 30 mg RC Q6HR PRN 5 Days #20 supp.rect 05/29/19 [Rx] Ergocalciferol (VITAMIN D2) [Drisdol (50,000 Unit)] 50,000 unit PO QWEEK 56 Days #7 capsule 05/29/19 [Rx] HYDROcodone/Acet 5/325 mg [[place] 5-325 mg] 1 tab PO Q6HR PRN 5 Days #10 tablet 05/29/19 [Rx] Allergies/Adverse Reactions: Allergy/AdvReac Type Severity Reaction Status Date / Time codeine Allergy Gastrointestinal Verified 05/28/19 21:20 Upset Date of admission: 05/28/19 13:24 Primary care physician: [facility] Consults: 05/28/19 13:08 Consult to Urology [CONS] Routine Consulting Provider: [facility] Reason for Consult: obstructing ureteral stone Call Completed: Yes - Constitutional Vitals: Temp Pulse Resp BP Pulse Ox 98.5 F 61 15 145/72 95 05/29/19 13:55 05/29/19 13:55 05/29/19 13:55 05/29/19 10:31 05/29/19 13:55 - Patient Status Disposition: Home, Self-Care Condition: Good - Discharge Instructions Instructions: Acute Kidney Injury (DC), Kidney Stones (DC) Follow Up With: [facility] [Primary Care Provider[facility] - 08/06/19 10:45 am Ac Pitts MD [Partnered Physician] - (The office will call patient with date and time of appointment. Thank you) Additional Instructions: Your vitamin D level was found to be very low, at 21 (normal is above 30). You been prescribed vitamin D supplement to take weekly, first dose was given here in the hospital. He will need follow-up with her primary care provider for a recheck in approximately 2 months - Attending Attestation I examined this patient and my medical decision-making was reviewed with the Resident Physician Dr Fernando. I agree with the documented findings, disposition and treatment plan as described except to the extent set forth below. Mr Munson was observed for nephrolithiasis and hydronephrosis awake, pleasant, no complaints. has had no pain or bladder spasms, denies hematuria today, no urinary hesitancy or dysuria. denies fevers or chills discussed dc plan in detail and all questions answered. he will fu with urology outpt gen- alert, awake,appears stated age cv- reg rate and rhythm, normal s1,s2 lungs- ctabl, abd- soft, non tender, non distended, + bs neuro- AAOx3 Nephrolithiasis w moderate hydronephrosis s/p R stent by dr Pitts 05/28/19, cleared for dc by Urology, outpt fu for staged stone extraction AMY resolved with interventions and IVFs HTN- resume home med regimen on dc and fu outpt with pcp leukocysotis without fever, down trending without abx, UA unremarkable for infection- suspect was reactive, does not require abx vit D deficiency on supplements at home- ergocalciferol course with repeat vit d level in 8 weeks and further instruction from pcp further dx and plan as noted by resident time spent on dc 45 min <Ej Fernando S - Last Filed: 05/29/19 16:12> - NOTES TO OUTPATIENT PROVIDER Notes to Outpatient Provider: Mr. Munson came in to the hospital with mild right lower quadrant pain associated with nausea and vomiting, was found to have an 11 mm stone at the ureteropelvic junction. Urology performed cystoscopy, placed a right ureteral stent, and will follow with the patient for staged stone extraction as an outpatient. Of note, patient was found to be vitamin D deficient, and will be prescribed ergocalciferol 50,000 units weekly 8 weeks, with instructions to follow up for recheck in 2 months. Also of note, patient was found to have a 2/6 systolic murmur which was not previously documented, this may require further follow-up if it is not already known to you. Date of Encounter: 05/29/19 Time of Encounter: 13:13 - Discharge Diagnosis (1) Nephrolithiasis Priority: Primary Status: Acute Assessment and Plan: Mr. Munson 73-year-old male with past medical history significant for prostate cancer hypertension nephrolithiasis requiring ureteral stents and TIA. He presented to the ED after several weeks of vague right lower quadrant abdominal pain, with sudden onset of nausea and vomiting. He states this did match his earlier presentations of nephrolithiasis. Of note, his urinalysis was negative for any blood Or any other abnormalities. He was initially found to have an acute kidney injury with a creatinine of 1.60 and a BUN of 24. CT scan showed a large 11 mm stone at the ureteropelvic juncture, the decision was made to undergo cystoscopy with retrograde pyelogram. Also during this procedure a ureteral stent was placed * After stenting and fluid replenishment, the patient's AMY resolved with a BUN remaining at 24, while the creatinine dropped to 1.21 * Patient was given belladonna alkaloids for ureteral spasm, with scheduled follow-up in 2 weeks for outpatient lithotripsy Of note, patient was found to be significantly vitamin deficient with measured value of 21 * Ergocalciferol 50,000 units was given once for discharge, with a prescription to continue this for 8 weeks. Patient was instructed to follow-up with his primary care provider for subsequent recheck and supplementation as needed On physical exam, patient was found to have a systolic 2 out of 6 murmur that was not previously documented in his records. * Instructions were provided to the patient's PCP in his follow-up instructions that we were unsure if this was pre-existing or if this was a new finding, and left to the primary care providers discretion as to whether this would require further workup or continued monitoring (2) Systolic murmur Priority: Secondary Status: Acute Assessment and Plan: Systolic murmur noted on physical exam. 2 out of 6 in intensity, best heard at the left lower sternal border, and most pronounced early systole. No radiation of the murmur to the carotids, no carotid bruits noted Patient remains asymptomatic, denies any chest pain, palpitations, lightheadedness or dizziness * Follow-up indicated with PCP if this is indeed a new murmur Hospital course: Mr. Munson is a pleasant 73 year old male with significant history of nephrolithiasis requiring ureteral stents and lithotripsy who presented with symptoms similar to his prior kidney stones, namely, mild vague lower abdominal pain on the right side with sudden onset of nausea and vomiting. Interestingly, his urinalysis was completely normal. Imaging revealed a 11 mm stone at the right ureteropelvic junction. Patient had initial AMY that resolved after ureteral stenting and fluid resuscitation. Patient was given belladonna alkaloids for ureteral spasm with good resolution of his pain. Incidental finding included vitamin D deficiency with a measured level of 21. Patient was given ergocalciferol 68529 units once before discharge, with prescription to continue this for 8 weeks and instructions to follow up with primary care provider for subsequent recheck. patient was also incidentally found to have a systolic 2/6 murmur that was not previously documented his records, patient is made aware of this and PCP will follow up if this is a new murmur as he or she feels is indicated. Plan is for patient to follow up for outpatient lithotripsy and staged stone removal. Discharge discussed with: patient - Time Spent with Patient Total time spent providing and/or coordinating discharge services: Date of admission: 05/28/19 13:24 Primary care physician: PCP [facility] Consults: 05/28/19 13:08 Consult to Urology [CONS] Routine Consulting Provider: [facility] Reason for Consult: obstructing ureteral stone Call Completed: Yes Discharging clinician: Ej Fernando Anticipated date of discharge: 05/29/19 - Constitutional Vitals: Temp Pulse Resp BP Pulse Ox 98.2 F 64 15 145/72 96 05/29/19 10:31 05/29/19 10:31 05/29/19 10:31 05/29/19 10:31 05/29/19 10:31 General appearance: Present: A&O X 3, pleasant, no acute distress Exam: Gen: Awake and alert, no acute distress, well-nourished, well kempt Head: Normocephalic, atraumatic Eyes: EOMI, no scleral icterus ENT: Mucous membranes moist, no oropharyngeal erythema CV: S1-S2 present, regular rhythm at a rate of approximately 70, no murmurs rubs or gallops Pulm: CTAB, not tachypneic, no respiratory distress, no increased work of breathing Abd: Soft, nontender to palpation, obese, nondistended, no rebound or guarding. Bowel sounds present EXT: Grossly intact motor strength in all 4 extremities, no lower extremity edema, no distal cyanosis or pallor Skin: Warm, dry, intact, no rashes or lesions noted Neuro: Cranial nerves II-XII grossly intact, no focal nurologic deficits Psych: normal mood and affect, Answers questions with intact judgement, appropriate insight, and linear thought - Patient Status Functional capacity at discharge: independent ambulation Overall status at discharge: patient is back to baseline - Diet and Activity Activity: increase activity as tolerated Diet: advance to your usual diet
[2019-05-29] MEDS ORDERED: Ergocalciferol (VIT D2) 50,000 UNIT (1.25MG) CAP PO STA (14:11)
== END 2019-05-29 15:18 | disposition home or self-care (01) ==
LOC: 3ANU 12:00 → EMEROOARM 12:00 → SUATTDRO 13:24 → 3ANU 14:23
PROVIDERS: ADMIT Internal Medicine; ATTEND Internal Medicine